=== PATIENT | female | born 1940 | race Caucasian/White ===

== ENCOUNTER 2020-12-05 11:52 | Day surgery (SDC) | payer OTHER, BC ==
[2020-12-04 15:11] VITALS: BMI 23.9
[2020-12-05 15:31] VITALS: TEMP 98
[2020-12-05 16:48] VITALS: BP 115/71; PULSE 78
== END 2020-12-05 15:45 | disposition home or self-care (01) ==
LOC: FASU-ENDO 11:52
PROVIDERS: ATTEND Internal Medicine Gastroenterology
PROC: 0DB68ZX Excision of Stomach, Via Natural or Artificial Opening Endoscopic, Diagnostic (ICD-10-PCS; principal; 2020-12-05 14:39)
DX: K92.1 Melena (principal); K31.7 Polyp of stomach and duodenum; K29.50 Unspecified chronic gastritis without bleeding; Z96.89 Presence of other specified functional implants
CPT/HCPCS: 82962; 88305-TC